=== PATIENT | male | born 1955 | race Hispanic/Latino ===

== ENCOUNTER 2024-12-18 07:26 | Day surgery (SDC) | payer MEDICARE ==
[~2024-12-18] VITALS: Ht 185.4 cm; Wt 104.3 kg
[~2024-12-18 07:26] MED LIST: FLEXERIL5 M1 PO; IBUPROFEN600 MG PO; LOSARTAN POTASS50 MG PO; MOTRIN800 MG PO; MYTESI PO; QUETIAPINE FUMA25 MG PO; SYMTUZA 800-1501 TAB; TRAMADOL HYDROC50 M1 PO; [UNRECOGNIZED DRUG - REMARK]
[2024-12-18] MEDS ORDERED: FAMOTIDINE 10MG/ML 2ML SDV IV ONE (07:33)
[2024-12-18] MEDS ORDERED: SODIUM CHLORIDE 0.9% 1,000 ML IV ONE (07:33)
[2024-12-18] MEDS ORDERED: ONDANSETRON HCl 4 MG/2 ML SDV ONE (07:48)
[2024-12-18 11:15] VITALS: BP 138/80
[2024-12-18] MEDS ORDERED: LIDOCAINE HCL 2% 2ML SDV IV ONE (16:04)
[2024-12-18] MEDS ORDERED: PROPOFOL 200 MG/20 ML VIAL IV ONE (16:04)
[2024-12-18] MEDS ORDERED: GLYCOPYRROLATE 0.2 MG/ML IV ONE (16:04)
== END 2024-12-18 09:58 | disposition home or self-care (01) ==
LOC: ENDO 07:26
PROVIDERS: ATTEND Surgery
PROC: 0DBN8ZX Excision of Sigmoid Colon, Via Natural or Artificial Opening Endoscopic, Diagnostic (ICD-10-PCS; principal; 2024-12-18)
PROC: 0DBL8ZX Excision of Transverse Colon, Via Natural or Artificial Opening Endoscopic, Diagnostic (ICD-10-PCS; 2024-12-18)
DX: Z12.11 Encounter for screening for malignant neoplasm of colon (principal); D12.5 Benign neoplasm of sigmoid colon; D12.3 Benign neoplasm of transverse colon; K57.30 Diverticulosis of large intestine without perforation or abscess without bleeding; K63.5 Polyp of colon; K64.8 Other hemorrhoids; I10 Essential (primary) hypertension; Z21 Asymptomatic human immunodeficiency virus [HIV] infection status
CPT/HCPCS: J1596; J2405